=== PATIENT | male | born 1960 | race African-American/Black ===

== ENCOUNTER 2017-06-18 19:52 | Emergency (ER) | payer MEDICARE, OTHER ==
[2017-06-18] MEDS ORDERED: NORMAL SALINE 1000 ML 1,000 ML IV ONE (20:09)
[2017-06-18] MEDS ORDERED: NORMAL SALINE 1000 ML 1,000 ML IV PRN (20:18)
--- NOTE | 2017-06-18 20:22 | ER Document Report ---
ED General - General Stated Complaint: HIGH BLOOD SUGAR Time Seen by Provider: 06/18/17 20:16 Information source: Patient, Relative - HPI Notes: 56-year-old male with history of insulin requiring diabetes presents with fairly abrupt onset of diffuse weakness and near syncope today. He has generalized weakness. Noticed his blood sugar to be up earlier. It was in the 400s so instead of 27 units he used 50 units of his NovoLog subcu. Denies vomiting but he has had nausea. No cough or cold symptoms but does admit to some breathing difficulty. Denies any specific chest pain. He has been cold and chilling but no fever. No other recent illness. He does use Lantus at night as well. - Related Data Allergies/Adverse Reactions: No Known Allergies Allergy (Unverified 06/18/17 20:44) Past Medical History - Social History Smoking Status: Former Smoker Frequency of alcohol use: None Family History: Other Endocrine Medical History: Reports: Hx Diabetes Mellitus Type 1 Review of Systems - Review of Systems -: Yes All other systems reviewed and negative Physical Exam - Vital signs Vitals: Resp 19 06/18/17 20:17 Interpretation: Hypotensive - Notes Notes: GENERAL: VS as per nursing doc. ill-appearing male with tachypnea HEAD: Atraumatic, normocephalic. EYES: Pupils equal round and reactive to light, extraocular movements intact, sclera anicteric, no conjunctival injection or discharge. ENT: Nares patent, oropharynx clear without exudates, dry mucous membranes. NECK: Normal range of motion, supple without lymphadenopathy. LUNGS: Breath sounds clear to auscultation bilaterally and equal. No wheezes rales or rhonchi. HEART: Tachycardic with normal rhythm without murmurs. ABDOMEN: Soft, non-tender, normoactive bowel sounds. No guarding, no rebound. No masses appreciated. No Berlin sign. BACK: No CVA tenderness. EXTREMITIES: Normal range of motion, no calf tenderness, no edema. NEUROLOGICAL: Cranial nerves grossly intact. Normal speech. Normal sensory and motor exams. No gross cerebellar abnormalities. PSYCH: Normal mood, normal affect. Somnolent but awake enough to reach in his pocket to give me a list of medications. SKIN: Cool and diaphoretic. No rash noted Course - Re-evaluation Re-evalutation: 06/18/17 23:12 Patient is completely back to normal he states. He was having some cramping which is improving. He is fairly hypokalemic. No reason for any severe dehydration that I can see. No excessive heat exposure as well he has had no recent illness except he is having problems with a tooth he is going to have to get repaired. Magnesium level is pending at this point. 06/18/17 23:14 I do not have any record of prior kidney function and he is unsure of his kidney function. He is on an DARLIN inhibitor. He is tolerating p.o. fluids. 06/19/17 02:09 Patient's labs appear to be normalizing. Potassium is okay. Creatinine has improved significantly as well. He sees Dr. Manuel at [facility] first and will follow up with them for a recheck of his chemistries at the beginning of the week. Discussed with him staying out of the heat, potassium supplementation via foods. - Vital Signs Vital signs: Temp Pulse Resp BP Pulse Ox 97.3 F 71 15 116/73 99 06/18/17 20:25 06/18/17 23:03 06/19/17 02:14 06/19/17 02:15 06/19/17 02:15 - Laboratory Result Diagrams: 06/18/17 20:15 06/19/17 01:15 Laboratory results interpreted by me: 06/18/17 06/18/17 06/18/17 20:15 20:15 20:15 WBC 15.9 H MCV 79 L RDW 14.2 H Absolute Lymphocytes 6.4 H VBG pH 7.43 H Sodium 128.9 L Potassium 2.7 L* Chloride 88 L BUN 34 H Creatinine 2.59 H Est GFR ( Amer) 31 L Est GFR (Non-Af Amer) 26 L Glucose 336 H POC Glucose Calcium 10.6 H Alkaline Phosphatase 168 H Total Protein 8.4 H 06/18/17 06/18/17 06/19/17 20:15 22:36 01:15 WBC MCV RDW Absolute Lymphocytes VBG pH Sodium 131.1 L Potassium Chloride BUN 30 H Creatinine 1.50 H Est GFR ( Amer) 59 L Est GFR (Non-Af Amer) 48 L Glucose 129 H POC Glucose 296 H 128 H Calcium Alkaline Phosphatase Total Protein - EKG Interpretation by Md EKG shows normal: Sinus rhythm - Normal sinus rhythm, rate 78, nonspecific ST and T-wave abnormalities. Discharge - Discharge Clinical Impression: Hyperglycemia, Renal insufficiency, Near syncope, Hypotension Condition: Good Disposition: HOME, SELF-CARE Referrals: DARRYL ESCALONA MD [Primary Care Provider] - Follow up in 3-5 days (Please follow -up with your primary care physician at the first of the week, you will probably need to have your chemistry panel rechecked. Stay out of the heat this weekend. Return for worsening or concern. Ensure you stay well hydrated.)
[2017-06-18 20:33] LABS: ABSOLUTE BASOPHILS # (AUTO) 0.1 10^3/uL (0.0-0.2); ABSOLUTE EOSINOPHILS # (AUTO) 0.2 10^3/uL (0.0-0.6); ABSOLUTE LYMPHOCYTES (AUTO) 6.4 10^3/uL (0.5-4.7); ABSOLUTE MONOCYTES (AUTO) 1.1 10^3/uL (0.1-1.4); BASOPHILS % (AUTO) 0.9 % (0-2); EOSINOPHILS % (AUTO) 1.3 % (0-6); HEMATOCRIT 42.9 % (37.9-51.0); HEMOGLOBIN 14.8 g/dL (13.5-17.0); HGB HCT DIFFERENCE 1.5; LYMPHOCYTES % (AUTO) 40.2 % (13-45); MEAN CORPUSCULAR HGB CONC 34.4 g/dL (32.0-36.0); MEAN CORPUSCULAR VOLUME 79 fl (80-97); MONOCYTES % (AUTO) 7.1 % (3-13); RED BLOOD COUNT 5.47 10^6/uL (4.35-5.55); RED CELL DISTRIBUTION WIDTH 14.2 % (11.5-14.0); SEGMENTED NEUTROPHILS % (AUTO) 50.5 % (42-78); WHITE BLOOD COUNT 15.9 10^3/uL (4.0-10.5)
[2017-06-18 20:36] LABS: VENOUS BLOOD BASE EXCESS 0.7 mmol/L; VENOUS BLOOD HCO3 24.7 mmol/L (20-32); VENOUS BLOOD PCO2 37.7 mmHg (35-63); VENOUS BLOOD PH 7.43 (7.30-7.42)
[2017-06-18 21:01] LABS: ALANINE AMINOTRANSFERASE 29 U/L (21-72); ALKALINE PHOSPHATASE 168 U/L (38-126); ANION GAP 18 (5-19); ASPARTATE AMINO TRANSFERASE 25 U/L (17-59); BILIRUBIN,DIRECT 0.4 mg/dL (0.0-0.4); BILIRUBIN,TOTAL 0.6 mg/dL (0.2-1.3); BLOOD UREA NITROGEN 34 mg/dL (7-20); CALCIUM 10.6 mg/dL (8.4-10.2); CARBON DIOXIDE 23 mmol/L (22-30); CHLORIDE 88 mmol/L (98-107); CREATININE RESULT 2.59 mg/dL (0.52-1.25); GLUCOSE 336 mg/dL (75-110); SODIUM 128.9 mmol/L (137-145); TOTAL PROTEIN 8.4 g/dL (6.3-8.2)
[2017-06-18 21:12] LABS: POTASSIUM 2.7 mmol/L (3.6-5.0)
[2017-06-18] MEDS ORDERED: POTASSIUM CHLORIDE 10 MEQ TABLET.SA PO ONE (21:24)
--- NOTE | 2017-06-18 21:33 | RADIOLOGY REPORT (SQ) ---
EXAM DESCRIPTION: CHEST SINGLE VIEW COMPLETED DATE/TIME: 06/18/2017 8:56 pm REASON FOR STUDY: Dyspnea COMPARISON: None. EXAM PARAMETERS: NUMBER OF VIEWS: One view. TECHNIQUE: Single frontal radiographic view of the chest acquired. RADIATION DOSE: NA LIMITATIONS: None. FINDINGS: LUNGS AND PLEURA: No acute opacities, masses or pneumothorax. No pleural effusion. MEDIASTINUM AND HILAR STRUCTURES: No masses. Contour normal. HEART AND VASCULAR STRUCTURES: Heart normal in size. Normal vasculature. BONES: No acute findings. HARDWARE: None in the chest. OTHER: No other significant finding. IMPRESSION: NO ACUTE RADIOGRAPHIC FINDING IN THE CHEST. TECHNICAL DOCUMENTATION: JOB ID: [id number]
--- NOTE | 2017-06-18 21:42 | EKG REPORT ---
SEVERITY:- BORDERLINE ECG - SINUS RHYTHM BORDERLINE INFERIOR Q WAVES BORDERLINE T ABNORMALITIES, DIFFUSE LEADS : Confirmed by: Sly Vega 18-Jun-2017 21:41:40
[2017-06-18] MEDS ORDERED: NORMAL SALINE 1,000 ML IV ONE (23:08)
[2017-06-19 01:45] LABS: ANION GAP 8 (5-19); BLOOD UREA NITROGEN 30 mg/dL (7-20); CALCIUM 8.8 mg/dL (8.4-10.2); CARBON DIOXIDE 24 mmol/L (22-30); CHLORIDE 99 mmol/L (98-107); GLUCOSE 129 mg/dL (75-110); SODIUM 131.1 mmol/L (137-145)
[2017-06-19 01:52] LABS: POTASSIUM 4.3 mmol/L (3.6-5.0)
[2017-06-19 02:17] VITALS: BP 116/73
== END 2017-06-19 02:24 | disposition home or self-care (01) ==
LOC: ER 19:52
DX: E10.65 Type 1 diabetes mellitus with hyperglycemia (principal); I95.9 Hypotension, unspecified; N28.9 Disorder of kidney and ureter, unspecified; R55 Syncope and collapse; R53.1 Weakness; R11.0 Nausea; R06.82 Tachypnea, not elsewhere classified; R68.83 Chills (without fever); R40.0 Somnolence; R94.31 Abnormal electrocardiogram [ECG] [EKG]; R61 Generalized hyperhidrosis; Z87.891 Personal history of nicotine dependence; R25.2 Cramp and spasm; E87.6 Hypokalemia; Z79.899 Other long term (current) drug therapy
CPT/HCPCS: 93005; 99285; 96360; 36415; 82962; 83735; 85025; 80048; 80053; 82803; 71010; 93010; J7030; A9270